=== PATIENT | male | born 1995 | race Caucasian/White ===

== ENCOUNTER 2017-08-30 21:02 | Emergency (ER) | payer OTHER ==
[2017-08-30] MEDS: ACETAMINOPHEN 325 MG TAB PO (21:59)
== END 2017-08-30 23:06 | disposition home or self-care (01) ==
LOC: FTE 21:02
DX: S69.91XA Unspecified injury of right wrist, hand and finger(s), initial encounter (principal); F17.210 Nicotine dependence, cigarettes, uncomplicated; W22.8XXA Striking against or struck by other objects, initial encounter; Y92.89 Other specified places as the place of occurrence of the external cause
CPT/HCPCS: 73130; 73130-RT; 99283-25